=== PATIENT | male | born 1950 | race American Indian/Alaskan Native ===

== ENCOUNTER 2020-01-10 21:09 | Emergency (ER) | payer MEDICARE ==
[2020-01-10 21:23] VITALS: BP 114/65
[2020-01-10] MEDS ORDERED: IBUPROFEN 600 MG TAB PO ONE ×2 (23:13→23:15)
--- NOTE | 2020-01-11 01:48 | XRay Report ---
PELVIS 2 VIEWS INDICATION: leg pain from fall. COMPARISON: No relevant prior imaging study available. FINDINGS: No acute fracture or dislocation. There is mild joint space narrowing at the hips. No foreign bodies. IMPRESSION: 1. No acute findings. LEFT FEMUR 5 VIEWS INDICATION: leg pain from fall. COMPARISON: No relevant prior imaging study available. FINDINGS: No acute fracture or dislocation is seen. Mild degenerative changes are noted at the left hip and lef t knee. Calcific density adjacent to the left greater trochanter is likely calcific tendinitis in the distal gluteal tendons. IMPRESSION: 1. No acute findings. Signer Name: Pepe Taveras MD Signed: 01/11/2020 1:44 AM Workstation Name: [email or web address]
--- NOTE | 2020-01-11 02:33 | Cat Scan Report ---
CT cervical spine wo con INDICATION: Pt states he fell down manhole. No L.O.C.. TECHNIQUE: All CT scans at this location are performed using the following dose modulation technique: Automated exposure control. COMPARISON: None available. FINDINGS: No acute fracture or subluxation is seen. There is no prevertebral soft tissue swelling. There is diffuse cervical spondylosis. No spinal canal stenosis is seen. Lung apices are clear. IMPRESSION: 1. No acute fracture or subluxation is seen in the cervical spine. Signer Name: Pepe Taveras MD Signed: 01/11/2020 2:28 AM Workstation Name: [id number]
--- NOTE | 2020-01-11 02:34 | Cat Scan Report ---
CT HEAD WITHOUT CONTRAST INDICATION: Pt states he fell down manhole. No L.O.C.. TECHNIQUE: All CT scans at this location are performed using CT dose reduction for ALARA by means of automated e xposure control. COMPARISON: None available. FINDINGS: HEMORRHAGE: None. EXTRA-AXIAL SPACES: Normal in size and morphology for the patient's age. VENTRICULAR SYSTEM: Normal in size and morphology for the patient's age. BRAIN PARENCHYMA: No acute findings. MIDLINE SHIFT OR HERNIATION: None. ORBITS: Normal as visualized. SOFT TISSUES OF HEAD: Normal. CALVARIUM: Normal. VISUALIZED PARANASAL SINUSES AND MASTOID AIR CELLS: Clear. ADDITIONAL FINDINGS: None. IMPRESSION: 1. No acute intracranial abnormality. Signer Name: Pepe Taveras MD Signed: 01/11/2020 2:30 AM Workstation Name: [id number]
--- NOTE | 2020-01-11 03:48 | Emergency Department Report ---
ED Lower Extremity HPI - General Chief Complaint: Extremity Injury, Lower Stated Complaint: GROIN PAIN Time Seen by Provider: 01/11/20 02:47 Source: patient Mode of arrival: Wheelchair Limitations: No Limitations - History of Present Illness Initial Comments: This is a 69-year-old -[place] male male who presents to the emergency room with left leg and left elbow pain from a fall yesterday. States he was walking to work when he fell into a manhole around 0622 yesterday morning. Patient states his left leg was stuck in the manhole needed calling EMS. Removed. He reports bruising and pain that is worse with movement to the left hip and left lower leg. He denies swelling. Patient reports bruising from left hip to left ankle. Denies loss of consciousness, hitting his head, chest pain, palpitations, back pain, numbness or tingling, swelling, or radiating pain. MD Complaint: leg injury (Right leg) Onset/Timin -: days(s) Injury: Hip: Left, Leg: Left Type of Injury: other (fall) Place: street/outdoors Severity: moderate Severity scale (0 -10): 8 Improves With: NSAID Worsens With: movement, palpation Context: fall Associated Symptoms: able to partially bear weight, ambulatory. denies: swelling, numbness Treatments Prior to Arrival: NSAIDS - Related Data Allergies Allergy/AdvReac Type Severity Reaction Status Date / Time No Known Allergies Allergy Verified 01/10/20 21:19 ED Review of Systems ROS: Stated complaint: GROIN PAIN Other details as noted in HPI Constitutional: denies: chills, fever Respiratory: denies: cough, shortness of breath, wheezing Cardiovascular: denies: chest pain, palpitations Gastrointestinal: denies: abdominal pain, nausea, diarrhea Musculoskeletal: arthralgia (Left hip pain, left leg pain, left arm pain). denies: back pain, joint swelling Skin: denies: rash, lesions Neurological: denies: headache, weakness, paresthesias Psychiatric: denies: anxiety, depression ED Past Medical Hx - Past Medical History Previous Medical History?: No - Surgical History Past Surgical History?: No - Social History Smoking Status: Never Smoker ED Physical Exam - General Limitations: No Limitations General appearance: alert, in no apparent distress - Respiratory Respiratory exam: Present: normal lung sounds bilaterally. Absent: respiratory distress - Cardiovascular Cardiovascular Exam: Present: regular rate, normal rhythm. Absent: systolic murmur, diastolic murmur, rubs, gallop - GI/Abdominal GI/Abdominal exam: Present: soft, normal bowel sounds. Absent: distended, tenderness, guarding, rebound, rigid - Extremities Exam Extremities exam: Present: normal inspection - Expanded Lower Extremity Exam Left Hip exam: Present: full ROM (Pain with full range of motion), tenderness (Lateral hip). Absent: swelling, abrasion, laceration, ecchymosis, deformity, crepidus, dislocation, erythema, external rotation, internal rotation, shortening Upper Leg exam: Present: normal inspection, full ROM Knee exam: Present: normal inspection, full ROM, full knee extension. Absent: tenderness, swelling, abrasion, laceration, ecchymosis, deformity, crepidus, dislocation, erythema, effusion, pain w/ pronation/supination, posterior draw sign, pain/laxity with valgus, pain/laxity with varus Lower Leg exam: Present: full ROM, abrasion (lateral tibia-fibula). Absent: tenderness, swelling, laceration, ecchymosis, deformity, crepidus, dislocation, erythema, palpable cord, Monica's sign Ankle exam: Present: full ROM. Absent: tenderness, swelling, abrasion, laceration, ecchymosis, deformity, crepidus, dislocation, erythema, anterior draw sign Foot/Toe exam: Present: normal inspection, full ROM Neuro vascular tendon exam: Present: no vascular compromise Gait: Positive: observed and limited by pain - Back Exam Back exam: Present: normal inspection, full ROM. Absent: paraspinal tenderness, vertebral tenderness, rash noted - Neurological Exam Neurological exam: Present: alert, oriented X3, normal gait - Psychiatric Psychiatric exam: Present: normal affect, normal mood - Skin Skin exam: Present: warm, dry, intact, normal color. Absent: rash ED Course Vital Signs 01/10/20 21:22 Temperature 98.4 F Pulse Rate 74 Respiratory 18 Rate Blood Pressure 114/65 [Right] O2 Sat by Pulse 97 Oximetry ED Lower Extremity MDM - Radiology Data Radiology results: report reviewed CT cervical spine wo con INDICATION: Pt states he fell down manhole. No L.O.C.. TECHNIQUE: All CT scans at this location are performed using the following dose modulation technique: Automated exposure control. COMPARISON: None available. FINDINGS: No acute fracture or subluxation is seen. There is no prevertebral soft tissue swelling. There is diffuse cervical spondylosis. No spinal canal stenosis is seen. Lung apices are clear. IMPRESSION: 1. No acute fracture or subluxation is seen in the cervical spine. CT HEAD WITHOUT CONTRAST INDICATION: Pt states he fell down manhole. No L.O.C.. TECHNIQUE: All CT scans at this location are performed using CT dose reduction for ALARA by means of automated exposure control. COMPARISON: None available. FINDINGS: HEMORRHAGE: None. EXTRA-AXIAL SPACES: Normal in size and morphology for the patient's age. VENTRICULAR SYSTEM: Normal in size and morphology for the patient's age. BRAIN PARENCHYMA: No acute findings. MIDLINE SHIFT OR HERNIATION: None. ORBITS: Normal as visualized. SOFT TISSUES OF HEAD: Normal. CALVARIUM: Normal. VISUALIZED PARANASAL SINUSES AND MASTOID AIR CELLS: Clear. ADDITIONAL FINDINGS: None. IMPRESSION: 1. No acute intracranial abnormality. PELVIS 2 VIEWS INDICATION: leg pain from fall. COMPARISON: No relevant prior imaging study available. FINDINGS: No acute fracture or dislocation. There is mild joint space narrowing at the hips. No foreign bodies. IMPRESSION: 1. No acute findings. LEFT FEMUR 5 VIEWS INDICATION: leg pain from fall. COMPARISON: No relevant prior imaging study available. PELVIS 2 VIEWS INDICATION: leg pain from fall. COMPARISON: No relevant prior imaging study available. FINDINGS: No acute fracture or dislocation. There is mild joint space narrowing at the hips. No foreign bodies. IMPRESSION: 1. No acute findings. - Medical Decision Making 69-year-old male complaining of left leg pain and left elbow pain from a fall. Patient was examined by me. Patient is nontoxic appearing and stable. Vitals are normal. Obtained CT of cervical spine, head CT, x-ray of pelvis, and x-ray of left femur. CT scans and x-rays negative for acute findings. There are abrasions to left lateral tibia-fibula. Given history, exam, and work-up, there is low suspicion for skull fracture, spine fracture, or other acute spinal syndrome. No abdominal or midline spinal tenderness on exam for signs of trauma. Patient instructed to follow-up with his primary care doctor. Take [id number] NSAIDs for pain management. Patient given strict return instructions. Patient discharged with prompt follow-up with primary care physician. Critical care attestation.: If time is entered above; I have spent that time in minutes in the direct care of this critically ill patient, excluding procedure time. ED Disposition Clinical Impression: Pain of left anterior lower extremity, Abrasion, leg without infection Fall Qualifiers: Encounter type: initial encounter Qualified Code(s): W19.XXXA - Unspecified fall, initial encounter Disposition: TO HOME OR SELFCARE Is pt being admited?: No Condition: Stable Instructions: Fall Prevention for Older Adults (ED), Arthralgia (ED) Additional Instructions: Rest Use ice or heat on affected area for 20 minutes and off for 2 hours. Take pain medication as needed for pain. Follow up with Primary Care Provider in 2-3 days. Referrals: [facility] [Provider Group] - 3-5 Days [facility] [Outside] - 3-5 Days [facility] [Outside] - 3-5 Days BELTRAN ROJAS MD [Staff Physician] - 3-5 Days Forms: Work/School Release Form(ED) Time of Disposition: 03:57
== END 2020-01-11 04:25 | disposition home or self-care (01) ==
LOC: ED 21:09
DX: S80.812A Abrasion, left lower leg, initial encounter (principal); M25.522 Pain in left elbow; M25.552 Pain in left hip; W17.1XXA Fall into storm drain or manhole, initial encounter; Y93.89 Activity, other specified; Y92.89 Other specified places as the place of occurrence of the external cause; Y99.8 Other external cause status
CPT/HCPCS: 70450; 72125; 72170